=== PATIENT | female | born 1965 | race Caucasian/White ===

== ENCOUNTER 2021-01-24 13:38 | Emergency (ER) | payer OTHER ==
[~2021-01-24] VITALS: Ht 165.1 cm; Wt 90.7 kg
[2021-01-24] MEDS ORDERED: PROAIR HFA8.5 GM INH (13:48)
[2021-01-24] MEDS ORDERED: GLIMEPIRIDE4 MG PO (13:48)
[2021-01-24] MEDS ORDERED: EUTHYROX125 MCG PO (13:48)
[2021-01-24] MEDS ORDERED: RAYOS5 MG PO (13:48)
[2021-01-24] MEDS ORDERED: LISINOPRIL-HCT1 EAC1 PO (13:49)
[2021-01-24] MEDS ORDERED: ZPAK PO (13:49)
[2021-01-24 14:31] LABS: HEMATOCRIT 41.7 % (37.0-47.0); HEMOGLOBIN 14.4 gm/dL (12.0-15.0); MCH 28.6 pg (26.0-34.0); MCHC 34.4 g/dL (28.0-37.0); MPV 8.6 fl. (7.2-11.1); NUCLEATED RBCS 0 /100WBC; PLATELET COUNT* 196 thou/uL (150-400); RBC 5.02 mil/uL (4.20-5.00); RDW-CV 14.3 % (10.5-14.5); WBC 6.4 thou/uL (4.0-11.0)
[2021-01-24 14:50] LABS: CREATININE 1.1 mg/dL (0.6-1.3); POTASSIUM 4.6 mmol/L (3.5-5.1)
[2021-01-24 14:56] LABS: ALBUMIN 3.6 g/dL (3.4-5.0); TOTAL BILIRUBIN 0.5 mg/dL (<0.1-1.0); TOTAL PROTEIN 7.9 g/dL (6.4-8.2)
[2021-01-24 15:17] LABS: ABSOLUTE LYMPHOCYTES 0.6 thou/uL (0.8-5.3); ABSOLUTE MONOCYTES 0.4 thou/uL (0.0-1.2); ABSOLUTE NEUTROPHILS 5.4 thou/uL (1.6-8.1); PLATELET ESTIMATE ADEQUATE
--- NOTE | 2021-01-24 16:20 | EKG ---
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: : 1965 Requested By: Amado Murray Order Number: [id number] MD: Lawson Samaniego Measurements Intervals [place] Rate: 82 P: 48 FL: 145 QRS: -11 QRSD: 103 T: 34 QT: 364 QTc: 425 Interpretive Statements Sinus rhythm Consider left atrial enlargement Left ventricular hypertrophy No previous ECG available for comparison Electronically Signed On 01-24-2021 16:19:56 CDT by Lawson Samaniego [email or web address] <ELECTRONICALLY SIGNED> By: Lawson Samaniego MD, LOCATED [facility]IN [facility] 01/24/21 1619 06 06 Lawson Samaniego MD, [facility] /EPI
[2021-01-24] MEDS ORDERED: ALBUTEROL2.5 MG/31 INH (16:50)
[2021-01-24 17:04] VITALS: BP 102/57
== END 2021-01-24 17:03 | disposition home or self-care (01) ==
LOC: M.ERS 13:38
PROVIDERS: Family Medicine
DX: U07.1 COVID-19 (principal)

== ENCOUNTER 2021-01-25 10:16 | Inpatient (IN) | payer OTHER ==
[~2021-01-25] VITALS: Ht 165.1 cm; Wt 91.6 kg
[~2021-01-25 10:16] MED LIST: ALBUTEROL2.5 MG/31 INH; EUTHYROX125 MCG PO; GLIMEPIRIDE4 MG PO; LISINOPRIL-HCT1 EAC1 PO; PROAIR HFA8.5 GM INH; RAYOS5 MG PO; ZPAK PO
[2021-01-25 10:32] VITALS: BP 128/54
[2021-01-25 11:30] LABS: ABSOLUTE LYMPHOCYTES 0.5 thou/uL (0.8-5.3); ABSOLUTE MONOCYTES 0.4 thou/uL (0.0-1.2); ABSOLUTE NEUTROPHILS 4.9 thou/uL (1.6-8.1); BASOPHILS 0.3 %; HEMATOCRIT 39.3 % (37.0-47.0); HEMOGLOBIN 13.5 gm/dL (12.0-15.0); LYMPHOCYTES 8.6 %; MCH 28.6 pg (26.0-34.0); MCHC 34.5 g/dL (28.0-37.0); MCV 82.9 fL (80.0-100.0); MONOCYTES 6.3 %; NUCLEATED RBCS 0 /100WBC; PLATELET COUNT* 239 thou/uL (150-400); POLYS 84.8 %; RBC 4.74 mil/uL (4.20-5.00); RDW-CV 14.3 % (10.5-14.5); WBC 5.8 thou/uL (4.0-11.0)
[2021-01-25 11:38] LABS: CALCIUM 8.9 mg/dL (8.5-10.1); CREATININE 1.2 mg/dL (0.6-1.3); POTASSIUM 4.5 mmol/L (3.5-5.1)
[2021-01-25 11:48] LABS: ALBUMIN 3.3 g/dL (3.4-5.0); TOTAL BILIRUBIN 0.5 mg/dL (<0.1-1.0); TOTAL PROTEIN 7.6 g/dL (6.4-8.2)
[2021-01-25 13:19] VITALS: BP 122/67
[2021-01-25 13:35] VITALS: BP 138/69
--- NOTE | 2021-01-25 14:36 | EKG ---
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 : 1965 Requested By: Amado Murray Order Number: [id number] MD: Lawson Samaniego Measurements Intervals [place] Rate: 86 P: 43 DC: 150 QRS: -7 QRSD: 101 T: 31 QT: 366 QTc: 438 Interpretive Statements Sinus rhythm Probable left atrial enlargement Left ventricular hypertrophy poor r wave progression Compared to ECG 01/24/2021 14:07:52 no change Electronically Signed On 01-25-2021 14:36:19 CDT by Lawson Samaniego [email or web address] <ELECTRONICALLY SIGNED> By: Lawson Samaniego MD, [facility] 01/25/21 1436 1115 1115 Lawson Samaniego MD, [facility] /EPI
[2021-01-25 16:16] VITALS: BP 131/64
[2021-01-25 17:43] LABS: APTT 24.4 Seconds (25.0-31.3); INR 0.9; PROTIME 9.9 Seconds (9.20-11.50)
[2021-01-25 20:00] VITALS: BP 132/63
[2021-01-26 00:29] VITALS: BP 115/57
[2021-01-26 04:27] VITALS: BP 114/60
[2021-01-26 04:35] LABS: ABSOLUTE LYMPHOCYTES 0.7 thou/uL (0.8-5.3); ABSOLUTE MONOCYTES 0.5 thou/uL (0.0-1.2); ABSOLUTE NEUTROPHILS 6.3 thou/uL (1.6-8.1); BASOPHILS 0.1 %; HEMATOCRIT 36.5 % (37.0-47.0); HEMOGLOBIN 12.6 gm/dL (12.0-15.0); LYMPHOCYTES 8.9 %; MCH 28.3 pg (26.0-34.0); MCHC 34.5 g/dL (28.0-37.0); MCV 82.1 fL (80.0-100.0); MONOCYTES 6.2 %; MPV 8.4 fl. (7.2-11.1); NUCLEATED RBCS 0 /100WBC; PLATELET COUNT* 275 thou/uL (150-400); POLYS 84.8 %; RBC 4.45 mil/uL (4.20-5.00); RDW-CV 14.1 % (10.5-14.5); WBC 7.4 thou/uL (4.0-11.0)
[2021-01-26 04:48] LABS: CALCIUM 8.7 mg/dL (8.5-10.1); CREATININE 1.1 mg/dL (0.6-1.3); PHOSPHORUS* 3.6 mg/dL (2.5-4.9); POTASSIUM 4.4 mmol/L (3.5-5.1); TOTAL BILIRUBIN 0.3 mg/dL (<0.1-1.0)
[2021-01-26 08:00] VITALS: BP 121/56
[2021-01-26 11:45] VITALS: BP 126/63
[2021-01-26 16:22] VITALS: BP 122/74
[2021-01-26 20:00] VITALS: BP 118/56
--- NOTE | 2021-01-26 22:30 | CON ---
[address] [address] CONSULTATION Name: SHAMA ABARCA Room: [address] M.R.#: [id number] Admission: 01/25/21 Attend Phys: Silvino Johnson Discharge: Date of : 63 Report #: [id number] THIS REPORT FOR: cc: Jose Casas Bradley L. DO Pervez, Adeel MD ~ DATE OF CONSULTATION: 01/25/2021 CONSULT REQUESTED BY: Isaac Carlin DO. INDICATION FOR CONSULTATION: Acute hypoxemic respiratory failure secondary to COVID-19. HISTORY OF PRESENT ILLNESS: This 55-year-old female with past medical history is as mentioned below, this does include a history of diabetes as well as hypertension. There is no known history of smoking. The patient was diagnosed with COVID-19 11 days ago. She visited her primary care physician and has been treated with prednisone as well as a Z-Amaury. The patient, however, has had worsening in her symptoms. She, therefore eventually, came to our Emergency Room. She was found to be hypoxemic with O2 saturation in the high 90s initially. On oxygen, she was initially maintaining O2 saturation with 2-3 liters of oxygen this morning. There has been a rapid worsening in her oxygen needs. By this evening, she is requiring 6 liters of oxygen to maintain O2 saturation in the low 90s. She does have a cough. There is not much sputum. She currently does not have upper respiratory complaints. There is no swelling of lower extremities. There is no calf pain. REVIEW OF SYSTEMS: The patient's review of systems for 12 points is negative except as mentioned above. PAST MEDICAL HISTORY: Diabetes, hypothyroidism, hypertension. SOCIAL HISTORY: No known history of smoking, ethanol abuse, or drug abuse. CURRENT MEDICATIONS: List in [employer] reviewed. HOME MEDICATIONS: List also in [employer] reviewed. ALLERGIES: No known drug allergies. FAMILY HISTORY: No pertinent family history. PHYSICAL EXAMINATION: GENERAL: She is alert, awake and oriented, does not appear to be in any distress at this time; however, O2 saturation is 91%. She is on 6 [place] [address] CONSULTATION Name: SHAMA ABARCA Room: [address]#: [id number] Admission: 01/25/21 Attend Phys: Silvino Johnson Discharge: Date of : 63 Report #: [id number] cannula. VITAL SIGNS: Pulse 90, blood pressure 131/64, respiratory rate is 20. She is afebrile with a temperature of 36.8. Body mass index is elevated to 34. HEENT: Head is normocephalic and atraumatic. Pupils are equal and reactive. There is no throat erythema. She has a narrow airway. NECK: Does not show raised JVP, asymmetry, mass or lymph nodes. CHEST: Symmetrical expansion on inspection and palpation. On auscultation, breath sounds are bilaterally equal. I do not hear any added sounds. HEART: Regular. There is no murmur. ABDOMEN: Soft and nontender. EXTREMITIES: Lower extremities show no edema, no calf tenderness. SKIN: Dry and intact. NEUROLOGIC: Moves all extremities bilaterally equally and spontaneously with no focal deficits identified. LABORATORY DATA: The patient's chest x-ray from this morning is reviewed. I reviewed both the films as well as the report. There are bilateral interstitial infiltrates consistent with COVID-19. Superimposed bacterial infection cannot be ruled out at this time. LABORATORY DATA: The patient's lab work is in [employer] and this is reviewed. She is significantly hyperglycemic. She has hyponatremia. Obtain a D-dimer, it is not elevated. ASSESSMENT AND PLAN: 1. Acute hypoxemic respiratory failure secondary to COVID-19. Continue to titrate oxygen. Avoid sleeping supine, out of bed to chair as tolerated. Recommend prone positioning if possible. 2. COVID-19, I agree with dexamethasone at 6 mg daily. She has also received 1 dose of Solu-Medrol initially, which I agree with, but the ER physician note that the current guidelines recommend a standard dose of 6 mg of dexamethasone and allow an increase in dose up to 20 mg if the PF ratio is less than 200, we will reassess which tomorrow. I went ahead and also recommended proceeding with giving her Remdesivir. We will give her Actemra as well. I discussed risks and benefits of convalescent plasma with the patient, she is agreeable to receive convalescent plasma if we recommend. If she fails to improve by tomorrow, we will consider convalescent plasma. 3. Pulmonary infiltrates. She received a Z-Amaury already as an outpatient, has been started on ceftriaxone in the Emergency Room. I will continue the same. We will do a sputum culture as well. 4. Diabetes with hyperglycemia, loses management deferred to the primary service. 5. Hyponatremia. This is secondary to hyperglycemia. Recommend controlling glucoses likely sodium will normalize. I will also check a magnesium level [address] [address] CONSULTATION Name: SHAMA ABARCA Room: [address]#: [id number] Admission: 01/25/21 Attend Phys: Silvino Johnson Discharge: Date of : 63 Report #: [id number] tomorrow morning. 6. Deep venous thrombosis prophylaxis. I agree with Lovenox 40 b.i.d. 7. Clostridium difficile prophylaxis, Lactinex. 8. Obesity. The patient may have underlying obstructive sleep apnea. Should her condition worsen, I will have a low threshold of using BiPAP. Thanks for this consultation. <ELECTRONICALLY SIGNED> By: Alfredo Madsen MD 01/26/210 09 0006Afrancisco j Madsen MD /nt
[2021-01-27 00:34] VITALS: BP 100/45
[2021-01-27 02:06] LABS: GLYCOHEMOGLOBIN (HGB A1C) 8.7 % (4.8-5.6)
[2021-01-27 04:46] LABS: ABSOLUTE LYMPHOCYTES 0.7 thou/uL (0.8-5.3); ABSOLUTE MONOCYTES 0.4 thou/uL (0.0-1.2); ABSOLUTE NEUTROPHILS 6.6 thou/uL (1.6-8.1); BASOPHILS 0.1 %; HEMATOCRIT 36.1 % (37.0-47.0); HEMOGLOBIN 12.6 gm/dL (12.0-15.0); LYMPHOCYTES 8.8 %; MCH 28.9 pg (26.0-34.0); MCHC 34.9 g/dL (28.0-37.0); MCV 82.8 fL (80.0-100.0); MONOCYTES 5.5 %; MPV 8.6 fl. (7.2-11.1); NUCLEATED RBCS 0 /100WBC; PLATELET COUNT* 288 thou/uL (150-400); POLYS 85.6 %; RBC 4.36 mil/uL (4.20-5.00); RDW-CV 13.7 % (10.5-14.5); WBC 7.7 thou/uL (4.0-11.0)
[2021-01-27 05:48] LABS: ALBUMIN 2.8 g/dL (3.4-5.0); CALCIUM 8.5 mg/dL (8.5-10.1); CREATININE 0.9 mg/dL (0.6-1.3); MAGNESIUM 2.9 mg/dL (1.8-2.4); POTASSIUM 5.1 mmol/L (3.5-5.1); TOTAL BILIRUBIN 0.3 mg/dL (<0.1-1.0); TOTAL PROTEIN 6.5 g/dL (6.4-8.2)
[2021-01-27 06:00] VITALS: BP 110/56
[2021-01-27 08:10] VITALS: BP 110/56
[2021-01-27 12:07] VITALS: BP 109/64
[2021-01-27 15:58] VITALS: BP 115/80
[2021-01-27 20:00] VITALS: BP 117/62
[2021-01-28 00:29] VITALS: BP 108/56
[2021-01-28 04:20] VITALS: BP 112/59
[2021-01-28 08:48] VITALS: BP 112/59
[2021-01-28 09:26] LABS: CALCIUM 8.5 mg/dL (8.5-10.1); CREATININE 0.9 mg/dL (0.6-1.3); POTASSIUM 5.3 mmol/L (3.5-5.1)
[2021-01-28 12:57] VITALS: BP 105/54
[2021-01-28 16:11] VITALS: BP 114/69
[2021-01-29] VITALS (7 sets, daily range): BP systolic 99–153; BP diastolic 45–85
[2021-01-29 04:26] LABS: HEMATOCRIT 37.6 % (37.0-47.0); HEMOGLOBIN 12.8 gm/dL (12.0-15.0); MCH 28.4 pg (26.0-34.0); MCHC 34.1 g/dL (28.0-37.0); MCV 83.4 fL (80.0-100.0); NUCLEATED RBCS 0 /100WBC; PLATELET COUNT* 315 thou/uL (150-400); RBC 4.51 mil/uL (4.20-5.00); RDW-CV 13.7 % (10.5-14.5); WBC 10.8 thou/uL (4.0-11.0)
[2021-01-29 05:02] LABS: ALBUMIN 2.9 g/dL (3.4-5.0); CALCIUM 8.5 mg/dL (8.5-10.1); POTASSIUM 4.8 mmol/L (3.5-5.1); TOTAL BILIRUBIN 0.3 mg/dL (<0.1-1.0); TOTAL PROTEIN 6.4 g/dL (6.4-8.2)
[2021-01-29 06:52] LABS: ABSOLUTE LYMPHOCYTES 0.8 thou/uL (0.8-5.3); ABSOLUTE MONOCYTES 0.4 thou/uL (0.0-1.2); ABSOLUTE NEUTROPHILS 9.6 thou/uL (1.6-8.1); PLATELET ESTIMATE ADEQUATE
[2021-01-29 19:28] LABS: URINE BILIRUBIN NEGATIVE (Negative); URINE BLOOD NEGATIVE (Negative); URINE CLARITY CLEAR; URINE COLOR YELLOW; URINE GLUCOSE-RANDOM 3+ (Negative); URINE KETONES NEGATIVE (Negative); URINE LEUKOCYTES-REFLEX NEGATIVE (Negative); URINE NITRITE-REFLEX NEGATIVE (Negative); URINE PROTEIN NEGATIVE (Negative); URINE SPECIFIC GRAVITY 1.015 (1.005-1.030); URINE UROBILINOGEN 0.2 E.U./dl (0.2-1.0)
[2021-01-30 00:47] VITALS: BP 105/58
[2021-01-30 04:45] VITALS: BP 116/60
[2021-01-30 08:00] VITALS: BP 119/55
[2021-01-30 12:00] VITALS: BP 115/59
[2021-01-30 20:00] VITALS: BP 112/55
[2021-01-31 00:25] VITALS: BP 114/56
[2021-01-31 05:01] VITALS: BP 136/58
[2021-01-31 11:59] VITALS: BP 110/59
[2021-01-31 14:48] LABS: ABSOLUTE LYMPHOCYTES 0.4 thou/uL (0.8-5.3); ABSOLUTE MONOCYTES 0.4 thou/uL (0.0-1.2); ABSOLUTE NEUTROPHILS 13.3 thou/uL (1.6-8.1); BASOPHILS 0.3 %; HEMATOCRIT 38.5 % (37.0-47.0); HEMOGLOBIN 13.2 gm/dL (12.0-15.0); LYMPHOCYTES 2.6 %; MCH 28.8 pg (26.0-34.0); MCHC 34.3 g/dL (28.0-37.0); MCV 83.9 fL (80.0-100.0); MONOCYTES 2.5 %; MPV 8.3 fl. (7.2-11.1); NUCLEATED RBCS 0 /100WBC; PLATELET COUNT* 381 thou/uL (150-400); POLYS 94.6 %; RBC 4.59 mil/uL (4.20-5.00); RDW-CV 13.8 % (10.5-14.5); WBC 14.1 thou/uL (4.0-11.0)
[2021-01-31 15:16] LABS: CALCIUM 8.6 mg/dL (8.5-10.1); CREATININE 1.2 mg/dL (0.6-1.3); POTASSIUM 4.6 mmol/L (3.5-5.1); TOTAL BILIRUBIN 0.4 mg/dL (<0.1-1.0); TOTAL PROTEIN 6.1 g/dL (6.4-8.2)
[2021-01-31 17:52] VITALS: BP 113/60
[2021-01-31 20:00] VITALS: BP 133/56
[2021-02-01 01:25] VITALS: BP 121/51
[2021-02-01 04:24] VITALS: BP 113/51
[2021-02-01 08:00] VITALS: BP 121/62
[2021-02-01 13:06] VITALS: BP 115/55
[2021-02-01 17:02] VITALS: BP 123/66
[2021-02-01 20:00] VITALS: BP 137/52
[2021-02-02 00:09] VITALS: BP 118/59
[2021-02-02 04:14] VITALS: BP 128/62
[2021-02-02 08:00] VITALS: BP 132/63
[2021-02-02 12:00] VITALS: BP 113/50
[2021-02-02] MEDS ORDERED: LEVOFLOXACIN500 MG PO (12:26)
[2021-02-02] MEDS ORDERED: PREDNISONE10 MG PO (12:26)
[2021-02-02 13:30] VITALS: BP 113/50
== END 2021-02-02 16:15 | disposition home or self-care (01) | DRG 177 ==
LOC: M.ERS 10:16 → M.TBA-ER 11:39 → M.ORTHSURG 11:39
PROVIDERS: Family Medicine; Internal Medicine Critical Care Medicine; ADMIT Internal Medicine; ATTEND Internal Medicine
PROC: XW033E5 Introduction of Remdesivir Anti-infective into Peripheral Vein, Percutaneous Approach, New Technology Group 5 (ICD-10-PCS; principal; 2021-01-25)
PROC: 5A0935A Assistance with Respiratory Ventilation, Less than 24 Consecutive Hours, High Flow/Velocity Cannula (ICD-10-PCS; 2021-01-26)
PROC: 5A0935A Assistance with Respiratory Ventilation, Less than 24 Consecutive Hours, High Flow/Velocity Cannula (ICD-10-PCS; 2021-01-27)
PROC: 5A0935A Assistance with Respiratory Ventilation, Less than 24 Consecutive Hours, High Flow/Velocity Cannula (ICD-10-PCS; 2021-01-28)
PROC: 5A0935A Assistance with Respiratory Ventilation, Less than 24 Consecutive Hours, High Flow/Velocity Cannula (ICD-10-PCS; 2021-01-29)
PROC: 5A0935A Assistance with Respiratory Ventilation, Less than 24 Consecutive Hours, High Flow/Velocity Cannula (ICD-10-PCS; 2021-01-30)
PROC: 5A0935A Assistance with Respiratory Ventilation, Less than 24 Consecutive Hours, High Flow/Velocity Cannula (ICD-10-PCS; 2021-01-31)
PROC: 5A0935A Assistance with Respiratory Ventilation, Less than 24 Consecutive Hours, High Flow/Velocity Cannula (ICD-10-PCS; 2021-02-01)
DX: U07.1 COVID-19 (principal); J96.01 Acute respiratory failure with hypoxia; J12.82 Pneumonia due to coronavirus disease 2019; J15.9 Unspecified bacterial pneumonia; R78.81 Bacteremia; E87.1 Hypo-osmolality and hyponatremia; E11.65 Type 2 diabetes mellitus with hyperglycemia; B95.61 Methicillin susceptible Staphylococcus aureus infection as the cause of diseases classified elsewhere; E66.9 Obesity, unspecified; E03.9 Hypothyroidism, unspecified; I10 Essential (primary) hypertension; J44.9 Chronic obstructive pulmonary disease, unspecified; E87.5 Hyperkalemia; E83.41 Hypermagnesemia; G47.33 Obstructive sleep apnea (adult) (pediatric); Z79.84 Long term (current) use of oral hypoglycemic drugs; Z79.899 Other long term (current) drug therapy; Z68.33 Body mass index [BMI] 33.0-33.9, adult